=== PATIENT | male | born 1955 | race Caucasian/White ===

== ENCOUNTER 2018-04-17 19:12 | Emergency (ER) | payer OTHER ==
[~2018-04-17] VITALS: Ht 177.8 cm; Wt 119.8 kg
[2018-04-17 20:38] LABS: ABSOLUTE NEUTROPHILS 2.6 thou/uL (1.4-8.2); BASOPHILS 0.7 % (0.0-2.0); HEMATOCRIT 42.2 % (42.0-52.0); LYMPHOCYTES 39.1 % (24.0-44.0); MCH 31.2 pg (26.0-34.0); MCHC 35.5 g/dL (28.0-37.0); MCV 88.1 fL (80.0-100.0); MONOCYTES 10.3 % (1.0-8.0); PLATELET COUNT 228 thou/uL (150-400); POLYS 46.9 % (36.0-66.0); RBC 4.79 mil/uL (4.50-6.00); WBC 5.5 thou/uL (4.0-11.0)
[2018-04-17 20:47] LABS: ANION GAP 9 mmol/L (7-16); BUN 25 mg/dL (7-18); CALCIUM 9.6 mg/dL (8.5-10.1); CHLORIDE 103 mmol/L (98-107); CO2 25 mmol/L (21-32); CREATININE 1.1 mg/dL (0.7-1.3); GLUCOSE 97 mg/dL (74-106); SODIUM 137 mmol/L (136-145)
[2018-04-17 20:57] LABS: ALBUMIN 3.4 g/dL (3.4-5.0); SGOT 40 U/L (15-37); SGPT 40 U/L (30-65); TOTAL BILIRUBIN 0.4 mg/dL (<0.1-1.0); TOTAL PROTEIN 7.5 g/dL (6.4-8.2); TROPONIN-I <0.06 ng/mL (<0.06)
[2018-04-17 21:03] LABS: AMP/METHAMP Negative (Negative); BARBITURATES Negative (Negative); BENZODIAZEPINES Negative (Negative); COCAINE Negative (Negative); METHADONE Negative (Negative); OPIATES Negative (Negative); PCP Negative (Negative)
[2018-04-17 22:26] VITALS: BP 144/83
--- NOTE | 2018-04-18 15:13 | EKG ---
[address] [address] ELECTROCARDIOGRAM REPORT Name: QUIN MURCIA AMEYA Room #: DEP Krystyna#: [id number] Admission: 04/17/18 Attend Phys: Discharge: 04/17/18 Date of : 51 Report #: [id number] THIS REPORT FOR: //name// [facility] ED Test Date: 2018-04-17 Test Time: 19:31:44 Pat Name: QUIN MURCIA Department: Room: Gender: M Quality System Manager: [place] : 1955 Requested By: Mike Oh Order Number: [id number] MD: Daniel Owen Measurements Intervals Protem Rate: 65 P: WI: QRS: -29 QRSD: 100 T: 18 QT: 406 QTc: 423 Interpretive Statements Atrial fibrillation Borderline left axis deviation Baseline wander in lead(s) II,III,aVR,aVL,aVF,V1,V2,V3,V4,V5 No previous ECG available for comparison Electronically Signed On 04-18-2018 15:13:06 [employer] by Daniel Owen [email or web address] <ELECTRONICALLY SIGNED> By: Daniel Owen MD 04/18/18 1513 30 30 Daniel Owen MD /EPI
== END 2018-04-17 22:27 | disposition home or self-care (01) ==
LOC: ER 19:12
PROVIDERS: Emergency Medicine
DX: I48.91 Unspecified atrial fibrillation (principal)